=== PATIENT | female | born 2000 | race Caucasian/White ===

== ENCOUNTER 2020-07-28 21:18 | Emergency (ER) | payer MEDICAID ==
[~2020-07-28] VITALS: Ht 175.3 cm; Wt 77.6 kg
--- NOTE | 2020-07-28 21:22 | NUR ---
THIS IS A 19F THAT COMES IN FOR MIGRAINES X MONTHS WORSE TODAY STS UNABLE TO MOVE L LEG DUE TO CRAMPING. PT AMBULATORY TO TRIAGE A/OX4, NO NEURO DEFICITS NOTED. PT CONNECTED TO ALL MONITORING VSS, CHERELLE SPOUSE AT BEDSIDE
[2020-07-28] MEDS ORDERED: DIPHENHYDRAMINE 50 MG/ML, 1ML IVPush ONE (22:00)
[2020-07-28] MEDS ORDERED: KETOROLAC 30 MG/1 ML IVPush ONE (22:00)
[2020-07-28] MEDS ORDERED: PROCHLORPERAZINE 5 MG/ML, 2ML IVPush ONE (22:00)
[2020-07-28] MEDS ORDERED: DIPHENHYDRAMINE 50 MG/ML, 1ML ONE (22:16)
[2020-07-28] MEDS ORDERED: PROCHLORPERAZINE 5 MG/ML, 2ML ONE (22:16)
[2020-07-28] MEDS ORDERED: KETOROLAC 30 MG/1 ML ONE (22:16)
[2020-07-28 22:20] LABS: BASOPHILS % (AUTO) 1 % (0-1); EOSINOPHILS % (AUTO) 3 % (1-7); LYMPHOCYTES % (AUTO) 19 % (22-44); MEAN CORPUSCULAR HGB CONC 34.1 g/dL (32.4-35.8); MEAN PLATELET VOLUME 8.4 fL (7.4-10.4); MONOCYTES % (AUTO) 8 % (2-9); NEUTROPHILS % (AUTO) 69 % (42-75); PLATELET COUNT 361 x10^3/uL (130-400); RED BLOOD COUNT 4.15 x10^6/uL (3.82-5.3); RED CELL DISTRIBUTION WIDTH 12.6 % (9.6-15.2)
[2020-07-28 22:29] LABS: MD NO
[2020-07-28 22:33] LABS: ALBUMIN 3.7 g/dL (3.4-5.0); ANION GAP 7 mmol/L (5-15); CHLORIDE 104 mmol/L (98-107)
[2020-07-28 22:39] LABS: ALANINE AMINOTRANSFERASE 14 U/L (12-78); ALKALINE PHOSPHATASE 68 U/L (45-117); BILIRUBIN,TOTAL 0.3 mg/dL (0.2-1.0); TOTAL PROTEIN 8.4 g/dL (6.4-8.2)
[2020-07-28 23:04] VITALS: BP 101/65
--- NOTE | 2020-07-28 23:08 | NUR ---
PT STATES FEELING BETTER, NO FURTHER NEURO SYMPTOMS. DENIES HAVING COHEN. PT WITH STABLE VS. PT A&OX 4. IV DC'D INTACT. RX REVIEWED WITH PATIENT. PT INSTRUCTED TO F/U WITH NEURO. Patient/Caregiver given discharge instructions and they have confirmed that they understand the instructions. Patient ambulatory with steady gait.
== END 2020-07-28 23:11 | disposition home or self-care (01) ==
LOC: ED 21:48
DX: G43.109 Migraine with aura, not intractable, without status migrainosus (principal)
CPT/HCPCS: 36415; 70450; 80053; 84703; 85025; 96374; 96375; 99284; J0780; J1200; J1885